=== PATIENT | female | born 1965 | race Caucasian/White ===

== ENCOUNTER → 2019-04-19 | Outpatient (CLI) | payer OTHER ==
[2015-09-25 11:29] VITALS: BP 164/86
[~2019-04-19] MED LIST: ALPR0.25 PO; ARIP5TAB13 PO; ARMO250T4 PO; CARI350T PO; DULO60CA6 PO; ESTR1TAB15 PO; GABA600T7 PO; NAPR220C4 PO; OLME1TAB23 PO; ONDA4TAB10 SL; OXYC1TAB15 PO
--- NOTE | 2019-04-19 13:07 | KCIC ---
MR of the left hip HISTORY: Left hip pain, progressing. TECHNIQUE: Routine multiplanar sequences are obtained. FINDINGS: No acute fracture, bone destruction, marrow edema or femoral head osteonecrosis. No significant joint effusion. No evidence of labral tear or para labral cyst. No advanced DJD. Minimal signal within the left gluteus medius medius tendon compatible with mild tendinosis. Gluteus minimus tendon intact. Hamstring tendon intact. Iliopsoas tendon intact. Rectus femoris tendon intact. Coronal survey sequence demonstrates no acute abnormality at the contralateral hip or sacroiliac joints. There is apparent wall thickening of the visualized distal colon and rectum. This is fairly uniform throughout the visualized segments. No significant changes are seen in the paracolonic soft tissues. This could just be due to lack of distention but correlate for evidence of colitis. IMPRESSION: 1. No acute findings at the left hip. 2. Wall thickening of the distal colon and rectum, could be due to nondistention, but correlate for signs of colitis. Electronically signed by: Will Rdz MD (04/19/2019 1:05 PM) [id number]
== END | disposition home or self-care (01) ==
LOC: KCIC MRI 10:05
PROVIDERS: ATTEND Orthopaedic Surgery
DX: M25.552 Pain in left hip (principal); K63.89 Other specified diseases of intestine
CPT/HCPCS: 73721